=== PATIENT | female | born 1950 | race Hispanic/Latino ===

== ENCOUNTER 2018-07-01 13:07 | Emergency (ER) | payer MEDICARE, OTHER ==
[~2018-07-01] VITALS: Ht 162.6 cm; Wt 61.7 kg
--- OUTSIDE RECORDS SUMMARY | 2018-07-01 13:09 | XMS REPORT | Continuity of Care Document ---
Author Author [facility] Interface Address Unknown Phone Unavailable Problems Problem Status Onset Date Classification Date Reported Comments Source Z12.31 - ENCNTR SCREEN MAMMOGRAM FOR MA Active 02/15/2016 [facility] Medications Medication Details Route Status Patient Instructions Ordering Provider Order Date Source Allergies, Adverse Reactions, Alerts Substance Category Reaction Severity Reaction type Status Date Reported Comments Source Immunizations Immunization Date Given Site Status Last Updated Comments Source Results Order Name Results Value Reference Range Date Interpretation Comments Source Breast Mammo Scrn MELANIE w wei incl CAD MA Breast Mammo Scrn MELANIE w wei incl CAD MA BILATERAL DIGITAL SCREENING MAMMOGRAM 3D/2D WITH CAD: 06/29/2017 CLINICAL: Routine/Routine. Current study was evaluated with a Computer Aided Detection (CAD) system. COMPARISON:Comparison is made to exams dated: 02/21/2016 mammogram and 05/29/2013 mammogram - [facility]. TECHNIQUE: Digital Breast Tomosynthesis was performed and utilized for Interpretation. Current study was also evaluated with a Computer Aided Detection (CAD) system. The tissue of both breasts is heterogeneously dense, which could obscure detection of small masses. FINDINGS: No significant masses, calcifications, or other findings are seen in either breast. There has been no significant interval change. IMPRESSION: NEGATIVE RECOMMENDATION:There is no mammographic evidence of malignancy. A 1 year screening mammogram is recommended.(06/30/2018) This exam was interpreted at [id number] at [facility]. Nate Zamora M.D., jp/lv:07/01/2017 06:36:44 [place] Decorator(s): Leila Catalan, [facility] letter sent: BI-RADS 1/2 Mammogram BI-RADS: 1 Negative 06/29/2017 - - Read by: Nate Zamora MD Dictated Date/time: 07/01/17 06:36 Electronically Signed by: Nate Zamora MD 07/01/17 06:36 FINAL REPORT [facility] Digital Mammo Screening Mealnie MA Digital Mammo Screening Melanie MA - DIGITAL MAMMO SCREENING MELANIE MA BILATERAL DIGITAL SCREENING MAMMOGRAM WITH CAD: 02/21/2016 CLINICAL: Routine Annual. Current study was evaluated with a Computer Aided Detection (CAD) system. Comparison is made to exams dated: 05/29/2013 mammogram - [facility], 03/23/2005 and 02/02/2005. The tissue of both breasts is heterogeneously dense, which could obscure detection of small masses. No significant masses, calcifications, or other findings are seen in either breast. There has been no significant interval change. IMPRESSION: NEGATIVE There is no mammographic evidence of malignancy. A 1 year screening mammogram is recommended. Lizeth Jama M.D. mg/penrad:02/23/2016 07:45:05 [place] Decorator: Christy Melo, [facility] This exam was dictated and interpreted by [address] [place] [address]. letter sent: Normal exam Mammogram BI-RADS: 1 Negative 02/21/2016 - - Read by: Lizeth Jama MD Dictated Date/time: 02/23/16 07:45 Electronically Signed by: Lizeth Jama MD 02/23/16 07:45 FINAL REPORT [facility] Vital Signs Vital Sign Value Date Comments Source Encounters Location Location Details Encounter Type Encounter Number Reason For Visit Attending Provider ADM Date DC Date Status Source [facility]patient [facility] Outpatient [id number] Xiang Jones 02/21/2016 02/22/2016 [facility] Out[facility] Outpatient [id number] Xiang Jones 06/29/2017 [facility] Procedures Procedure Code Date Perfomer Comments Source
--- OUTSIDE RECORDS SUMMARY | 2018-07-01 13:10 | XMS REPORT | Summary of Care ---
Author Author [facility] Outpatient Imaging [facility] Address Unknown Phone Unavailable Encounter [facility] Encntr_alias(HUNTER) [id number] Date(s): 06/29/17 - 06/29/17 [facility] Outpatient Imaging [facility] [address] [address] [place], [place] [address]- [phone] Discharge Disposition: Home or Self Care Attending Physician: Xiang Rausch MD Vital Signs No data available for this section Problem List No data available for this section Allergies, Adverse Reactions, Alerts No data available for this section Medications No data available for this section Results No data available for this section Immunizations No data available for this section Procedures No data available for this section Social History No data available for this section Assessment and Plan No data available for this section
--- OUTSIDE RECORDS SUMMARY | 2018-07-01 13:10 | XMS REPORT | Summary of Care ---
Author Author [facility] Outpatient Imaging [facility] Outpatient Imaging [facility] Address Unknown Phone Unavailable Encounter [facility] Encntr_alias(FIN) [id number] Date(s): 02/21/16 - 02/21/16 [facility] Outpatient Imaging [facility] [address] [facility] [address] [place], [place] [address]- [phone] Discharge Disposition: Home Attending Physician: Xiang Rausch MD Vital Signs [...]
[2018-07-01] MEDS ORDERED: KETOROLAC TROMETHAMINE 30 MG/ML VIAL IV STA (13:48)
--- NOTE | 2018-07-01 14:56 | Diagnostic Imaging Report ---
Radiographs of the lumbar spine - 3 views HISTORY: Pain COMPARISON: None available. FINDINGS: Bones: No acute displaced fracture. Osseous alignment is within normal limits. Joints: Mild scattered degenerative change. No osseous erosion. Soft tissues: The soft tissues appear unremarkable. IMPRESSION: Mild scattered degenerative change. No osseous erosion. Signed by: Dr. Amado Saini M.D. on 07/01/2018 2:53 PM
[2018-07-01 15:08] VITALS: BP 166/81
== END 2018-07-01 15:16 | disposition home or self-care (01) ==
LOC: FSED 13:07
DX: M54.6 Pain in thoracic spine (principal); M54.42 Lumbago with sciatica, left side; I10 Essential (primary) hypertension; E78.5 Hyperlipidemia, unspecified
CPT/HCPCS: 72100; 81003; 99283; J1885